=== PATIENT | male | born 1995 | race American Indian/Alaskan Native ===

== ENCOUNTER 2018-02-20 01:24 | Emergency (ER) | payer SELFPAY ==
[2018-02-20] MEDS ORDERED: DiphenhydrAMINE 50 mg/ml Inj ONE (04:16)
--- NOTE | 2018-02-20 04:17 | C.PDOC ---
History Of Present Illness 22 y/o male presents to the ER complaining of a generalized rash present in his arms, legs and body that has been ongoing for three days. Patient denies any associated fever. He states he used cortisone 10 cream at home itch no relief. Time Seen by Provider: 02/20/18 03:33 Chief Complaint (Nursing): Abnormal Skin Integrity History Per: Patient History/Exam Limitations: no limitations Onset/Duration Of Symptoms: Days Current Symptoms Are (Timing): Still Present Location Of Injury: Right: Arm, Hand (papillary rash), Leg (papillary rash), Perineum, Left: Arm, Hand, Leg, Posterior: Back (upper, hive like) Quality Of Symptoms: Itching Past Medical History Vital Signs: Last Vital Signs Temp 98.3 F 02/20/18 04:46 Pulse 81 02/20/18 04:46 Resp 20 02/20/18 04:46 BP 119/68 02/20/18 04:46 Pulse Ox 99 02/20/18 05:17 - Medical History PMH: Asthma Denies: Chronic Kidney Disease Surgical History: Tonsillectomy Family History: States: Unknown Family Hx - Social History Hx Tobacco Use: No Hx Alcohol Use: No Hx Substance Use: No - Immunization History Hx Tetanus Toxoid Vaccination: No Hx Influenza Vaccination: No Hx Pneumococcal Vaccination: No Review Of Systems Except As Marked, All Systems Reviewed And Found Negative. Constitutional: Negative for: Fever ENT: Negative for: Throat Swelling Skin: Positive for: Rash ( rash extends to his upper and lower extremeties as well as his upper posterior area) Physical Exam - Physical Exam Appears: Non-toxic, No Acute Distress Skin: Rash (urticaria noted to upper back/ maculo papular rash to bilateral upper and lower extremities/fine rash between fingers bilaterally) Head: Atraumatic, Normacephalic Eye(s): bilateral: PERRL, EOMI Ear(s): Bilateral: Normal Oral Mucosa: Moist Neck: Normal ROM, Supple Chest: Symmetrical Cardiovascular: Rhythm Regular Respiratory: Normal Breath Sounds, No Rales, No Rhonchi, No Wheezing Gastrointestinal/Abdominal: Normal Exam, Soft, No Tenderness Extremity: Normal ROM Extremity: Bilateral: Atraumatic Pulses: Left Dorsalis Pedis: Normal, Right Dorsalis Pedis: Normal Neurological/Psych: Oriented x3 ED Course And Treatment O2 Sat by Pulse Oximetry: 99 (RA) Pulse Ox Interpretation: Normal Progress Note: Benadryl (25 mg) IV and predniSONE Tab (40 mg) ordered and given. Patient was advised to follow up with PCP. Disposition Counseled Patient/Family Regarding: Diagnosis, Need For Followup, Rx Given - Disposition Disposition: HOME/ ROUTINE Disposition Time: 04:13 Condition: STABLE Additional Instructions: TAKE MEDS DIRECTED FOLLOW UP WITH PMD RETURN TO ER IF WORSE Prescriptions: Cetirizine HCl [Zyrtec] 10 mg PO DAILY #20 capsule Permethrin 5% [Permethrin 5% Cream] 60 gm EXT ONCE #1 tube predniSONE [Prednisone] 40 mg PO DAILY #6 tab Instructions: Hives (DC), Scabies (DC) Forms: [facility] (Ukrainian) - POA Present On Arrival: None - Clinical Impression Clinical Impression: Allergic urticaria, Scabies - Scribe Statement The provider has reviewed the documentation as recorded by the Scribe (Viky Resendez) All medical record entries made by the Scribe were at my direction and personally dictated by me. I have reviewed the chart and agree that the record accurately reflects my personal performance of the history, physical exam, medical decision making, and the department course for this patient. I have also personally directed, reviewed, and agree with the discharge instructions and disposition.
[2018-02-20] MEDS: DiphenhydrAMINE 50 mg/ml Inj IVP STA (04:18)
[2018-02-20 04:49] VITALS: BP 119/68; PULSE 81; RESP 20; TEMP 98.3
[2018-02-20 05:09] VITALS: O2SAT 99
== END 2018-02-20 04:48 | disposition home or self-care (01) ==
LOC: C.ER 01:24
DX: L50.0 Allergic urticaria (principal); B86 Scabies
CPT/HCPCS: 96374; 99284; J1200

== ENCOUNTER 2018-09-19 08:17 | Emergency (ER) | payer MEDICAID ==
--- NOTE | 2018-09-19 08:40 | C.PDOC ---
History Of Present Illness 23 y/o male, w/PMhx of asthma, presents to the ER complaining of productive cough with yellow sputum which has been present for the past 5 days. Patient states that he has associated SOB and chest tightness, typical of his usual asthma. Patient reports that he has left sided rib pain only with cough. He notes that he took his albuterol nebulizer without relief at home and he ran out of the medications 2 days ago. He also took Theraflu without relief. Denies having fever, chills, headache, dizziness, CP, nausea, vomiting, hemoptysis, abdominal pain or any other associated symptoms. Time Seen by Provider: 09/19/18 08:23 Chief Complaint (Nursing): Cough, Cold, Congestion History Per: Patient History/Exam Limitations: no limitations Onset/Duration Of Symptoms: Days Current Symptoms Are (Timing): Still Present Severity: Moderate Past Medical History Reviewed: Historical Data, Nursing Documentation, Vital Signs Vital Signs: Last Vital Signs Temp 98.2 F 09/19/18 08:20 Pulse 93 H 09/19/18 08:20 Resp 20 09/19/18 08:20 BP 132/75 09/19/18 08:20 Pulse Ox 99 09/19/18 08:20 - Medical History PMH: Asthma Denies: Chronic Kidney Disease Surgical History: Tonsillectomy Family History: States: No Known Family Hx - Social History Hx Tobacco Use: No Hx Alcohol Use: Yes Hx Substance Use: No - Immunization History Hx Tetanus Toxoid Vaccination: No Hx Influenza Vaccination: Yes (07/2018) Hx Pneumococcal Vaccination: No Review Of Systems Except As Marked, All Systems Reviewed And Found Negative. Constitutional: Negative for: Fever, Chills Eyes: Negative for: Vision Change ENT: Positive for: Throat Pain. Negative for: Throat Swelling Cardiovascular: Negative for: Chest Pain, Palpitations, Light Headedness Respiratory: Positive for: Cough, Shortness of Breath, Sputum Gastrointestinal: Negative for: Nausea, Vomiting, Abdominal Pain, Diarrhea, Constipation Genitourinary: Negative for: Dysuria, Frequency Musculoskeletal: Positive for: Other (left sided rib pain). Negative for: Neck Pain, Back Pain Neurological: Negative for: Weakness, Numbness, Headache, Dizziness Physical Exam - Physical Exam Appears: Well, Non-toxic, No Acute Distress Skin: Normal Color, Warm, Dry Head: Atraumatic, Normacephalic Eye(s): bilateral: Normal Inspection, PERRL, EOMI Nose: Normal Oral Mucosa: Moist Throat: Normal, No Erythema, No Exudate Neck: Normal, Normal ROM, Supple, No Other (no meningeal signs) Chest: Symmetrical Cardiovascular: Rhythm Regular Respiratory: Decreased Breath Sounds (decreased breath sounds bilaterally), No Rales, No Rhonchi, No Wheezing Gastrointestinal/Abdominal: Normal Exam, Soft, No Tenderness, No Guarding Back: Normal Inspection, No CVA Tenderness, No Paraspinal Tenderness Extremity: Normal ROM, Capillary Refill (<2s) Pulses: Left Radial: Normal, Right Radial: Normal Neurological/Psych: Oriented x3, Normal Speech, Normal Motor, Normal Sensation Gait: Steady ED Course And Treatment O2 Sat by Pulse Oximetry: 99 (RA) Pulse Ox Interpretation: Normal - Other Rad CXR X-Ray: Viewed By Me, Read By Radiologist Interpretation: Date of service: 09/19/2018. HISTORY: cough, SOB. C OMPARISON: No prior. TECHNIQUE: Chest PA and lateral. FINDINGS: LUNGS: The interstitial markings are slightly increased and coarsened with fuse scattered peribronchial cuffing changes. Findings may represent sequela of reactive/inflammatory airway disease or viral illness. PLEURA: No significant pleural effusion identified. No pneumothorax apparent. CARDIOVASCULAR: No aortic atherosclerotic calcification present. Normal cardiac size. No pulmonary vascular congestion. OSSEOUS STRUCTURES: No significant abnormalities. VISUALIZED UPPER ABDOMEN: Normal. OTHER FINDINGS: None. IMPRESSION: The interstitial markings are slightly increased and coarsened with fuse scattered peribronchial cuffing changes. Findings may represent sequela of reactive/inflammatory airway disease or viral illness. Medical Decision Making Medical Decision Making: Plan: --CXR --Flu Swab --Rapid Strep Test --Duoneb --Prednisone Rapid strep negative Rapid flu negative CXR shows findings consistent with viral illness Pt reports improvement of symptoms with medication. Advised PMD followup. Diagnostic testing results and plan of care discussed with patient. Strict instructions given regarding prescription use, importance of followup, and signs/symptoms to return to ER including worsening SOB, chest pain, fever, or any other new/worsening symptoms. Pt verbalized understanding of discussion. Patient is A&Ox3, ambulating with steady gait, with vital signs stable for discharge. Disposition - Disposition Referrals: [facility] [Outside] Disposition: HOME/ ROUTINE Disposition Time: 10:45 Condition: IMPROVED Additional Instructions: Albuterol every 6 hours as needed for cough, nebulizer or inhaler Z-fly as prescribed Prednisone 2 tabs every day for 4 days Increase fluids Rest, no strenuous activity Followup with primary doctor within 2 days Return to ER with any new/worsening symptoms Prescriptions: Albuterol 0.083% [Albuterol Sulfate 3 Ml] 3 ml IH Q6 PRN #30 neb PRN Reason: Cough Albuterol Sulfate [Ventolin Hfa] 2 puff IH Q6 #1 pump Azithromycin [Z-Fly] 250 mg PO DAILY #6 tab predniSONE [predniSONE Tab] 40 mg PO DAILY #8 tab Instructions: Upper Respiratory Infection (ED) Forms: General Discharge Instructions, [email or web address] (Armenian), School Excuse - Clinical Impression Clinical Impression: Lower respiratory infection, Asthma exacerbation - PA / CABLE TESTER / Resident Statement MD/DO has reviewed & agrees with the documentation as recorded. - Scribe Statement The provider has reviewed the documentation as recorded by the Shawn Gloria Provider Attestation All medical record entries made by the Shawn were at my direction and personally dictated by me. I have reviewed the chart and agree that the record accurately reflects my personal performance of the history, physical exam, medical decision making, and the department course for this patient. I have also personally directed, reviewed, and agree with the discharge instructions and disposition.
[2018-09-19] MEDS ORDERED: Albuterol-Ipratrop 3 mg / 0.5 (3 ml) UD INH STA (08:41)
[2018-09-19] MEDS ORDERED: Albuterol-Ipratrop 3 mg / 0.5 (3 ml) UD ONE (09:03)
[2018-09-19 09:32] LABS: INFLUENZA A B NEGATIVE FOR FLU A/B (NEGATIVE)
--- NOTE | 2018-09-19 10:13 | RAD ---
Date of service: 09/19/2018 HISTORY: cough, SOB COMPARISON: No prior. TECHNIQUE: Chest PA and lateral FINDINGS: LUNGS: The interstitial markings are slightly increased and coarsened with fuse scattered peribronchial cuffing changes. Findings may represent sequela of reactive/inflammatory airway disease or viral illness. PLEURA: No significant pleural effusion identified. No pneumothorax apparent. CARDIOVASCULAR: No aortic atherosclerotic calcification present. Normal cardiac size. No pulmonary vascular congestion. OSSEOUS STRUCTURES: No significant abnormalities. VISUALIZED UPPER ABDOMEN: Normal. OTHER FINDINGS: None. IMPRESSION: The interstitial markings are slightly increased and coarsened with fuse scattered peribronchial cuffing changes. Findings may represent sequela of reactive/inflammatory airway disease or viral illness.
[2018-09-19 10:49] VITALS: BP 132/86; PULSE 81; RESP 12; TEMP 99.1
[2018-09-19 11:03] VITALS: O2SAT 99
== END 2018-09-19 10:49 | disposition home or self-care (01) ==
LOC: C.ER 08:17
DX: J45.901 Unspecified asthma with (acute) exacerbation (principal); J22 Unspecified acute lower respiratory infection; F17.210 Nicotine dependence, cigarettes, uncomplicated